=== PATIENT | female | born 1990 | race African-American/Black ===

== ENCOUNTER 2018-12-02 00:47 | Emergency (ER) | payer OTHER ==
[2018-12-02] MEDS ORDERED: Bupivacaine 0.5% 10 ML VIAL ONE (02:07)
[2018-12-02] MEDS ORDERED: Lidocaine 1% (PF) 30 ML VIAL ONE (02:10)
[2018-12-02 02:36] LABS: #Basophils 0.1 thou/uL (0.0-0.2); #Lymphocytes 2.6 thou/uL (1.20-3.40); #Monocytes 1.2 thou/uL (0.11-0.59); #Neutrophils 10.7 thou/uL (1.40-6.50); %Basophils 0.7 % (0.0-1.0); %Eosinophils 0.3 % (0.0-10.0); %Lymphocytes 17.6 % (21.0-51.0); %Monocytes 8.1 % (0.0-10.0); %Neutrophils 73.3 % (42.0-75.0); Hemoglobin 12.3 g/dL (12.0-16.0); Mean Corpuscular HGB CONC 33.3 g/dL (32.0-36.0); Mean Corpuscular Hemoglobin 26.6 pg (27.0-31.0); Mean Corpuscular Volume 79.9 fL (78.0-98.0); Mean Platelet Volume 8.4 fL (7.4-10.4); Platelet Count 352 thou/uL (130-400); Red Blood Cell (RBC) Count 4.62 mill/uL (4.20-5.40); White Blood Cell (WBC) Count 14.6 thou/uL (4.8-10.8)
[2018-12-02 02:49] LABS: BHCG - Serum Negative (NEGATIVE); Pregs Control Background? CLEAR/WHITE (CLR/WHITE); Pregs Control Bar Appear? YES (CONTROL BAR)
[2018-12-02 02:56] LABS: ALT (SGPT) 15 U/L (8-55); AST (SGOT) 12 U/L (5-34); Albumin 3.9 g/dL (3.5-5.0); Alkaline Phosphatase 82 U/L (40-150); Anion Gap 13 mmol/L (10-20); BUN (Urea Nitrogen) 5 mg/dL (7.0-18.7); Bilirubin, Total 0.4 mg/dL (0.2-1.2); Calc. Creatinine Clearance 0 mL/min (70-130); Calcium 9.3 mg/dL (7.8-10.44); Carbon Dioxide 26 mmol/L (22-29); Chloride 101 mmol/L (98-107); Estimated GFR-MDRD Greater than 90; Globulin 4.1 g/dL (2.4-3.5); Glucose 264 mg/dL (70-105); Potassium 3.5 mmol/L (3.5-5.1); Sodium 136 mmol/L (136-145)
[2018-12-02] MEDS ORDERED: Clindamycin/D5W 900 mg/50 ml Premix Bag ONE (03:36)
[2018-12-02] MEDS ORDERED: Ketorolac Tromethamine 30 MG/ML VIAL ONE (04:28)
--- NOTE | 2018-12-02 08:08 | CT ---
PRELIMINARY REPORT/[facility]/EMERGENTY AFTER-HOURS PROCEDURE CT Neck With Contrast EXAM DATE/TIME: 12/02/2018 3:00 AM CLINICAL HISTORY: 28 years old, female; Signs and symptoms; Other: Swelling; Patient HX: F26 presents to the ed for karla luation of otalgia, sore throat and right sided pain and facial swelling that travels down the right side of her neck. PT. Reports going to dentist and having two teeth pulled. PT. Was placed on amoxicillin and tylenol after. PT. Reports she is on her 5th day of amoxicillin. Reports fever on fri day, 100.6. PT. Reports pain is exacerbated by swallowing. TECHNIQUE: Axial computed tomography images of the neck with intravenous contrast. Coronal and sagittal reformatted images were created and reviewed. COMPARISON: No relevant prior studies available. FINDINGS: Oropharynx: Normal. No significant tonsillar enlargement. Larynx: Normal. Normal epiglottis. Submandibular/Parotid glands: Normal. Glands are normal in size. Thyroid: Normal. No enlarged or calcified nodules. Lymph nodes: There are numerous RIGHT level Ib enlarged lymph nodes compatible with reactive change. Lungs: Normal as visualized. Vasculature: No acute findings. Dental: Patient is post extraction of posterior third RIGHT upper and lower molar teeth. Bones/joints: There is a hypoattenuating collection surrounding the inner aspect of the RIGHT mandibu lar ramus with enhancing rim measuring approximately 2.4 x 0.5 x 2.1 cm suggestive of subperiosteal a bscess. There is marked inflammatory stranding involving the RIGHT perimandibular soft tissues compatible with swelling. Soft tissues: There are foci of air within the RIGHT pterygoid musculature compatible with typical po stoperative change. IMPRESSION: RIGHT mandibular subperiosteal abscess as above. Thank you for allowing us to participate in the care of your patient. Dictated and Authenticated by: Alexis Pedraza MD 12/02/2018 3:36 AM Central Time ([place] & [place]) FINAL REPORT CT NECK SOFT TISSUE WITH CONTRAST: FINDINGS/IMPRESSION: This report is in agreement with the above-provided preliminary interpretation. POS: [facility]
[2018-12-02] MEDS ORDERED: ISOVUE-370 76%-LOCM 1 ML ONE (11:24)
== END 2018-12-02 04:30 | disposition home or self-care (01) ==
LOC: ERS 00:47
DX: M27.2 Inflammatory conditions of jaws (principal); E11.9 Type 2 diabetes mellitus without complications; I10 Essential (primary) hypertension
CPT/HCPCS: 36415; 64400; 70491; 80053; 83605; 84703; 85025; 85652; 86140; 96365; 96375; J1885; J2001; J3490; Q9966

== ENCOUNTER 2020-01-05 19:59 | Emergency (ER) | payer OTHER | END 2020-01-05 21:53 | disposition home or self-care (01) | LOC: ERS 19:59 | DX: J06.9 Acute upper respiratory infection, unspecified (principal); E11.9 Type 2 diabetes mellitus without complications; I10 Essential (primary) hypertension; E78.00 Pure hypercholesterolemia, unspecified; J45.909 Unspecified asthma, uncomplicated; Z79.899 Other long term (current) drug therapy | CPT/HCPCS: 99281 ==

== ENCOUNTER 2020-03-26 21:27 | Emergency (ER) | payer OTHER ==
[2020-03-27 14:08] LABS: SARS-CoV-2 MS2 Positive; SARS-CoV-2 N Gene Negative; SARS-CoV-2 S Gene Negative; SARS-CoV-2 orf1ab Negative
== END 2020-03-27 | disposition home or self-care (01) ==
LOC: ERS 21:27
DX: R05 Cough (principal); R50.9 Fever, unspecified; R19.7 Diarrhea, unspecified; R09.81 Nasal congestion; Z20.828 Contact with and (suspected) exposure to other viral communicable diseases; E11.9 Type 2 diabetes mellitus without complications; E28.2 Polycystic ovarian syndrome; I10 Essential (primary) hypertension; E78.2 Mixed hyperlipidemia; J45.909 Unspecified asthma, uncomplicated; J42 Unspecified chronic bronchitis; F31.9 Bipolar disorder, unspecified; Z79.51 Long term (current) use of inhaled steroids; Z79.899 Other long term (current) drug therapy; Z79.52 Long term (current) use of systemic steroids
CPT/HCPCS: 87635; 99283; U0003